=== PATIENT | female | born 1970 | race Caucasian/White ===

== ENCOUNTER 2018-10-29 23:33 | Inpatient (IN) | payer BC, OTHER ==
[2018-10-30 00:03] LABS: ADD MAN DIFF? NO
[2018-10-30 00:04] LABS: BASOPHILS % 0.4 % (0.0-2.0); EOSINOPHILS # 0.2 10^3/ul (0.0-0.5); EOSINOPHILS % 2.1 % (0.0-7.0); HEMATOCRIT 38.1 % (37.0-47.0); LYMPHOCYTES % 38.1 % (15.0-51.0); MEAN CORPUSCULAR HEMOGLOBIN 32.5 pg (29.0-33.0); MEAN CORPUSCULAR HGB CONC 34.1 g/dl (32.0-37.0); MEAN CORPUSCULAR VOLUME 95.3 fl (82.0-101.0); MEAN PLATELET VOLUME 11.2 fl (7.4-10.4); MONOCYTE # 0.5 10^3/ul (0.3-0.9); MONOCYTES % 6.6 % (0.0-11.0); NEUTROPHIL # 4.2 10^3/ul (1.6-7.5); NEUTROPHILS % 52.5 % (39.0-77.0); PLATELET COUNT 186 10^3/UL (140-415); RED CELL DISTRIBUTION WIDTH 12.1 % (11.5-14.5)
[2018-10-30] MEDS: morphine 4 MG/ML VIAL IV (00:06)
[2018-10-30] MEDS: ONDANSETRON 4 MG INJ IV (00:06)
[2018-10-30] MEDS: SOD CHLORIDE 0.9% 500 ML IV ×2 (00:07→06:50)
[2018-10-30] MEDS: KETOROLAC 30 MG INJ IV (00:07)
[2018-10-30 00:24] LABS: ALANINE AMINOTRANSFERASE 24 IU/L (13-69); ALBUMIN 4.4 g/dl (3.3-4.9); ALBUMIN/GLOBULIN RATIO 1.37; ALKALINE PHOSPHATASE 79 IU/L (42-121); ANION GAP 10 (5-13); ASPARTATE AMINO TRANSFERASE 26 IU/L (15-46); BILIRUBIN,INDIRECT 0.4 mg/dl (0-1.1); BILIRUBIN,TOTAL 0.4 mg/dl (0.2-1.3); BLOOD UREA NITROGEN 17 mg/dl (7-20); CALCIUM 9.2 mg/dl (8.4-10.2); CARBON DIOXIDE 26 mmol/L (21-31); CHLORIDE 105 mmol/L (97-110); CREATININE 0.56 mg/dl (0.44-1.00); Estimated GFR > 60 mL/min (>60); GLUCOSE 133 mg/dl (70-220); LIPASE 159 U/L (23-300); POTASSIUM 3.6 mmol/L (3.5-5.1); SODIUM 141 mmol/L (135-144); TOTAL PROTEIN 7.6 g/dl (6.1-8.1)
[2018-10-30 01:40] LABS: ADD UMIC YES; UR ASCORBIC ACID NEGATIVE (NEGATIVE); UR BACTERIA FEW /HPF (NONE SEEN); UR BILIRUBIN (Dip) NEGATIVE (NEGATIVE); UR BLOOD (Dip) 3+ mg/dL (NEGATIVE); UR CLARITY CLOUDY (CLEAR); UR COLOR RED (YELLOW); UR GLUCOSE (Dip) NEGATIVE (NEGATIVE); UR KETONES (Dip) TRACE mg/dL (NEGATIVE); UR LEUKOCYTE ESTERASE (Dip) 2+ Leu/ul (NEGATIVE); UR MUCUS FEW /HPF (NONE SEEN); UR NITRITE (Dip) NEGATIVE (NEGATIVE); UR RBC > 182 /HPF (0-5); UR SPECIFIC GRAVITY (Dip) 1.012 (1.003-1.030); UR SQUAMOUS EPITHELIAL CELL FEW /HPF (FEW); UR TOTAL PROTEIN (Dip) 2+ mg/dl (NEGATIVE); UR UROBILINOGEN (Dip) NEGATIVE (NEGATIVE); UR WBC > 182 /HPF (0-5)
[2018-10-30] MEDS: CEFTRIAXONE 1 GM/50 ML (PMX) 50 ML IVPB (02:51)
[2018-10-30] MEDS ORDERED: ACETAMINOPHEN 325 MG TAB PO ×2 (03:30→04:00)
[2018-10-30] MEDS ORDERED: ONDANSETRON 4 MG INJ IV ×2 (03:30→04:00)
[2018-10-30] MEDS ORDERED: NACL 0.9% 3 ML SYG IV (04:00)
[2018-10-30] MEDS ORDERED: HYDROmorphONE 0.5 MG/0.5 ML SYG IV (04:00)
[2018-10-30] MEDS ORDERED: DOCUSATE SODIUM 100 MG CAP PO (04:00)
[2018-10-30] MEDS ORDERED: BISACODYL (EC) 5 MG TAB PO (04:00)
[2018-10-30] MEDS ORDERED: KETOROLAC 15 MG INJ IV (04:00)
[2018-10-30] MEDS: TAMSULOSIN (SR) 0.4 MG CAP PO ×2 (06:25→08:06)
[2018-10-30] MEDS: SOD CHLORIDE 0.9% 1,000 ML IV ×4 (06:25→19:50)
[2018-10-31] MEDS: CEFTRIAXONE 1 GM/50 ML (PMX) 50 ML IVPB (03:23)
[2018-10-31] MEDS: SOD CHLORIDE 0.9% 1,000 ML IV ×2 (03:23→11:31)
[2018-10-31 06:12] LABS: ADD MAN DIFF? NO
[2018-10-31 06:18] LABS: BASOPHILS % 0.6 % (0.0-2.0); EOSINOPHILS # 0.1 10^3/ul (0.0-0.5); EOSINOPHILS % 2.7 % (0.0-7.0); HEMATOCRIT 32.4 % (37.0-47.0); LYMPHOCYTES % 41.8 % (15.0-51.0); MEAN CORPUSCULAR HEMOGLOBIN 33.1 pg (29.0-33.0); MEAN CORPUSCULAR VOLUME 97.6 fl (82.0-101.0); MEAN PLATELET VOLUME 11.3 fl (7.4-10.4); MONOCYTE # 0.3 10^3/ul (0.3-0.9); NEUTROPHIL # 2.3 10^3/ul (1.6-7.5); NEUTROPHILS % 47.7 % (39.0-77.0); PLATELET COUNT 140 10^3/UL (140-415); RED BLOOD COUNT 3.32 10^6/ul (4.20-5.40); RED CELL DISTRIBUTION WIDTH 12.4 % (11.5-14.5)
[2018-10-31 06:18] LABS: WHITE BLOOD COUNT 4.7 10^3/ul (4.8-10.8)
[2018-10-31 06:40] LABS: ANION GAP 2 (5-13); BLOOD UREA NITROGEN 10 mg/dl (7-20); CARBON DIOXIDE 27 mmol/L (21-31); CHLORIDE 112 mmol/L (97-110); CREATININE 0.61 mg/dl (0.44-1.00); Estimated GFR > 60 mL/min (>60); GLUCOSE 87 mg/dl (70-220); SODIUM 141 mmol/L (135-144)
== END 2018-10-31 18:01 | disposition home or self-care (01) | DRG 694 ==
LOC: E/R 23:33 → PP2 10-30 03:28
DX: N20.0 Calculus of kidney (principal); N39.0 Urinary tract infection, site not specified; I95.89 Other hypotension
CPT/HCPCS: 36415; 74018; 74176; 80048; 80053; 81001; 81025; 83690; 85025; 87086; 96374; 96375; 99285-25